=== PATIENT | male | born 1960 | race Caucasian/White ===

== ENCOUNTER 2018-12-30 08:29 | Emergency (ER) | payer OTHER ==
[~2018-12-30] VITALS: Ht 172.7 cm; Wt 65.9 kg
--- NOTE | 2018-12-30 09:07 | REP ---
Right hand four views: I suspect there is a fracture in the neck of the index finger metacarpal. This should be correlated with clinical point tenderness. Suspect there is an old healed fracture of the fifth digit metacarpal. Mineralization and joint spaces otherwise are unremarkable. There are no foreign bodies or calcifications. Impression: Fractured neck of the index finger metacarpal. Electronically Signed by Moise Barnes MD 12/30/2018 08:58 A
[2018-12-30] MEDS ORDERED: ADACEL/BOOSTRIX VACCINE (DIPHTH/PERTUSS/ACELL/TETANUS)0.5ML SYR (90715) IM ONE (09:30)
[2018-12-30 09:52] VITALS: BP 156/101
== END 2018-12-30 10:17 | disposition home or self-care (01) ==
LOC: M ED 08:29
DX: S62.330A Displaced fracture of neck of second metacarpal bone, right hand, initial encounter for closed fracture (principal); W22.8XXA Striking against or struck by other objects, initial encounter; Y92.89 Other specified places as the place of occurrence of the external cause; Y99.0 Civilian activity done for income or pay